=== PATIENT | male | born 1965 | race Caucasian/White ===

== ENCOUNTER → 2017-05-13 | Outpatient (CLI) | payer OTHER ==
--- NOTE | 2017-05-13 11:53 | KCIC ---
MRI of the cervical spine without contrast 05/13/2017 CLINICAL HISTORY: Neck pain with right arm weakness for 4 to 5 weeks. TECHNIQUE: Unenhanced T1-weighted, T2-weighted and inversion recovery sagittal and gradient echo and T2-weighted axial images of the cervical spine were obtained. FINDINGS: Minimal lateral curvature of the cervical spine is seen convex to the left. There is straightening of the normal cervical lordosis. Degenerative signal changes are seen involving all of the disks of the cervical spine. Degenerative signal changes are seen within the marrow surrounding these discs. Loss of height of the C5-6, C6-7 and C7-T1 discs is noted. No area of abnormal signal intensity is seen involving the cervical spinal cord. On the axial images at C2-3 disc space there is minimal generalized disc bulge. Degenerative changes are seen along the uncovertebral and facet joints bilaterally. These findings do not result in significant central spinal canal or neural foraminal stenosis. Involving At the C3-4 disc space there is a mild to moderate generalized disc bulge. Degenerative changes are seen involving the uncovertebral and facet joints, right greater than left. These findings when combined efface the anterior and posterior CSF resulting in mild central spinal canal stenosis without evidence of cord impingement. Moderate right greater than left neural foraminal stenosis is seen. At the C4-5 disc space there is a mild generalized disc bulge. Superimposed on this disc bulge is a focal central disc protrusion. This measures 2 mm in AP diameter. Degenerative changes are seen involving the uncovertebral and facet joints bilaterally. These findings do not result in significant central spinal canal or neural foraminal stenosis. At the C5-6 disc space there is a mild generalized disc bulge. Superimposed on this disc bulge is a central/left paracentral focal disc osteophyte complex. This measures 3 mm in AP diameter. Degenerative changes are seen involving the uncovertebral and facet joints, left greater than right. These findings when combined efface the anterior CSF resulting in mild left-sided central spinal canal stenosis without evidence of cord impingement. Moderate left neural foraminal stenosis is seen. The right neural foramen is patent. At the C6-7 disc space there is a mild generalized disc bulge. Superimposed on this disc bulge is a left paracentral focal disc protrusion. This measures 3 mm in AP diameter. Degenerative changes are seen involving the uncovertebral and facet joints, left greater than right. These findings when combined do not result in significant central spinal canal stenosis. Mild left neural foraminal stenosis is seen. The right neural foramen is patent. At the C7-T1 disc space there is a mild generalized disc bulge. This is eccentric to the left. Degenerative changes involve the facet joints, left greater than right. These findings when combined result in significant central spinal canal stenosis. Moderate left neural foraminal stenosis is seen. The right neural foramen is patent. IMPRESSION: Degenerative changes are seen throughout the cervical spine. These findings result in mild central spinal canal stenosis at C3-4 and mild left-sided central spinal canal stenosis at C5-6 without evidence of cord impingement. Moderate right greater than left neural foraminal stenosis seen at C3-4. Moderate left neural foraminal stenosis is seen at C5-6 and C7-T1. Mild left neural foraminal stenosis is seen at C6-7. Electronically signed by: Ronnie Frazier MD (05/13/2017 11:50 AM)
== END | disposition home or self-care (01) ==
LOC: KCIC MRI 08:29
PROVIDERS: ATTEND Family Medicine
DX: M48.02 Spinal stenosis, cervical region (principal)
CPT/HCPCS: 72141